=== PATIENT | female | born 1990 | race Caucasian/White ===

== ENCOUNTER → 2016-05-30 | Outpatient (CLI) | payer OTHER ==
[~2016-05-30] MED LIST: GADOBUTROL 10 ML VIAL IVP ONE
--- NOTE | 2016-05-30 19:59 | MR ---
Unenhanced and Enhanced MR Imaging of the Brain (with Additional Attention to the Pituitary Gland) Clinical History: 26-year-old female with an elevated prolactin level. The patient has had no prior n eurosurgery. ICD 10 Diagnostic Code: E22.9. Technique: Sagittal T1 FLAIR, axial SWI, T2 FLAIR, T2 propeller, DWI and ADC mapping of the brain. Th e patient also received 60 mL of IV Gadavist without complication, and before and then after the admi nistration of the gadolinium, reduced [id number]-[id number] sagittal and coronal thin-collimated sequences we re obtained through the sella turcica (with repeated dynamically-enhanced coronal images also provide d). Axial 3-D FSPGR imaging through the entire brain was also obtained. Comparison Study: None available. 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 There is no abnormal intrasellar or suprasellar enhancement. 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 There is a normal appearance of the suprasellar cistern and the op tic chiasm, and there are appropriate cavernous carotid artery flow-voids. The mesial temporal lobes appear normal, and the prepontine cistern is normal. There is normal aeration of the sphenoid sinus, and normal bone marrow signal within the clivus. The ventricles and basilar cisterns are normal in size and symmetrical in configuration. There is no midline shift or other evidence of mass effect. There is no acute or subacute abnormal intra or extra -axial blood collection. There is no restricted diffusion to suggest an acute or subacute infarction. The SWI sequences did not reveal any "blooming artifact" to suggest occult hemorrhagic products or a myloid angiopathy. The FLAIR sequences do not reveal any demyelinating lesion. The brainstem and cere bellum are normal. There are appropriate carotid artery, vertebrobasilar, and dural venous sinus flow -voids. The orbits, paranasal sinuses, and the mastoids are normal. The craniocervical junction and t he pineal gland appear normal. 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
== END ==
LOC: FIMAGING 06:52
PROVIDERS: ATTEND Internal Medicine Endocrinology, Diabetes & Metabolism
DX: E22.9 Hyperfunction of pituitary gland, unspecified (principal)
CPT/HCPCS: A9585